=== PATIENT | female | born 1970 | race Two or more races ===

== ENCOUNTER 2024-02-28 04:19 | Emergency (ER) | payer BC ==
[~2024-02-28] VITALS: Ht 172.7 cm; Wt 65.8 kg
[2024-02-28] MEDS ORDERED: LEVOTHYROXINE25 MCG PO (04:36)
[2024-02-28] MEDS ORDERED: MEPERIDINE HCL/PF 50 MG/ML VIAL IM STA (05:39)
[2024-02-28] MEDS ORDERED: RINGERS SOLUTION,LACTATED 1,000 ML IV STA (05:39)
[2024-02-28] MEDS ORDERED: KETOROLAC TROMETHAMINE 30 MG VIAL IV STA (05:39)
[2024-02-28] MEDS ORDERED: CIPROFLOXACIN IN 5 % DEXTROSE 400 MG/200 ML PIGGYBAG IV STA (05:40)
[2024-02-28] MEDS ORDERED: PROMETHAZINE HCL 50 MG/ML AMPUL IM STA (05:40)
[2024-02-28 07:21] LABS: HEMATOCRIT 39.4 % (36.0-45.00); MEAN CELL VOLUME 98.2 fL (80.00-100.00); MEAN CORPUSCULAR HGB CONC 35.6 g/dl (32.0-36.0); PLATELET COUNT 274 K/uL (150-450); RED BLOOD COUNT 4.01 M/uL (4.00-6.00); RED CELL DISTRIBUTION WIDTH 12.7 % (11.5-14.5)
[2024-02-28 07:46] LABS: CALCIUM 9.1 mg/dL (8.5-10.1); CREATININE SERUM 0.51 mg/dL (0.55-1.02); GFR 125.67; POTASSIUM 3.95 mEq/L (3.5-5.1)
[2024-02-28 08:15] LABS: URINE APPEARANCE Clear; URINE BILIRRUBIN Negative (NEGATIVE); URINE BLOOD Negative; URINE COLOR Yellow; URINE GLUCOSE Negative (NEGATIVE); URINE KETONE Trace (NEGATIVE); URINE LEUKOCYTE Negative; URINE NITRATE Negative; URINE PROTEIN Negative (NEGATIVE); URINE UROBILINOGEN 0.2 E.U./dl
[2024-02-28 08:16] LABS: URINE BACTERIA 449.8 uL (0.0-1933); URINE EPITHELIAL CELLS 33.6 uL (0.0-38.8); URINE RBC 2.4 uL (0.0-20.8); URINE WBC 2.7 uL (0.0-23.2)
[2024-02-28 08:23] LABS: URINE CAST 0.15 uL (0.0-1.40)
[2024-02-28] MEDS ORDERED: KETOROLAC TROMETHAMINE 60 MG VIAL IM ONE (10:00)
== END 2024-02-28 09:56 | disposition home or self-care (01) ==
LOC: ER 04:21
DX: M54.50 Low back pain, unspecified (principal)